=== PATIENT | male | born 1925 | race Caucasian/White ===

== ENCOUNTER 2016-12-05 19:28 | Inpatient (IN) | payer OTHER ==
[~2016-12-05] VITALS: Ht 180.3 cm; Wt 75.8 kg
[~2016-12-05 19:28] MED LIST: AMIO200T2 PO; DOCU-144 PO; FAMO20TA98 PO; FURO-150 PO; HYDR-1189 PO; KLOR CON; LEVO25TA58 PO; METO-304 PO; MULT-976 PO; SIMV20TA6 PO; WARF3TAB PO
[2016-12-05 19:30] VITALS: BP 124/56; PULSE 69; RESP 19; TEMP 97.6; O2SAT 100
[2016-12-05] MEDS ORDERED: NACL 0.9% 1,000 ML IV ONE (19:52)
[2016-12-05 20:04] LABS: ANION GAP 10 (5-15); CALCIUM 8.6 mg/dL (8.4-11.0); CHLORIDE 102 mmol/L (98-107); CREATININE 2.21 mg/dL (0.55-1.30); GLUCOSE 134 mg/dL (70-99); POTASSIUM 4.6 mmol/L (3.5-5.1); SODIUM SERUM 136 mmol/L (136-145); UREA NITROGEN, BLOOD 45 mg/dL (8-21)
[2016-12-05 20:07] LABS: INR 1.1 (0.80-1.20); PROTHROMBIN TIME 12.1 SECS (9.5-12.5)
[2016-12-05 20:08] LABS: ALANINE AMINOTRANSFERASE 23 U/L (12-78); ALBUMIN 2.5 g/dL (3.4-4.8); ASPARTATE AMINOTRANSFERASE 24 U/L (10-37); LIPASE 72 U/L (73-393); TOTAL BILIRUBIN 0.6 mg/dL (0.0-1.0); TOTAL PROTEIN, SERUM 6.5 g/dL (6.4-8.3)
[2016-12-05 20:10] LABS: BASOPHILS # (AUTO) 0.1 K/uL (0.0-0.2); BASOPHILS % (AUTO) 1.7 % (0.0-2.0); EOSINOPHILS # (AUTO) 0.1 K/uL (0.0-0.4); EOSINOPHILS % (AUTO) 0.9 % (0.0-4.0); HEMATOCRIT 33.5 % (36-54); HEMOGLOBIN 11.2 g/dL (14.0-18.0); LYMPHOCYTES # (AUTO) 0.7 K/uL (1.0-5.5); LYMPHOCYTES % (AUTO) 7.9 % (20.5-51.5); MEAN CORPUSCULAR HEMOGLOBIN 26 pg (27-31); MEAN CORPUSCULAR HGB CONC 34 % (32-36); MEAN CORPUSCULAR VOLUME 79 fL (79.0-98.0); MONOCYTES # (AUTO) 0.5 K/uL (0.0-1.0); MONOCYTES % (AUTO) 6.1 % (1.7-9.3); NEUTROPHILS # (AUTO) 7.1 K/uL (1.8-7.7); NEUTROPHILS % (AUTO) 83.4 % (40.0-70.0); PLATELET COUNT (AUTO) 265 K/uL (130-430); RED BLOOD CELL COUNT(AUTO) 4.26 MIL/uL (4.2-6.2); RED CELL DISTRIBUTION WIDTH 14.8 % (9.0-15.0); WHITE BLOOD COUNT (AUTO) 8.5 K/uL (4.8-10.8)
[2016-12-05] MEDS ORDERED: AMPICILLIN SODIUM/SULBACTAM NA 3 GM in NS 100 ML IV ONE (20:15)
[2016-12-05] MEDS ORDERED: AMPICILLIN SODIUM/SULBACTAM NA 3 GM VIAL ONE (20:22)
[2016-12-05 21:42] VITALS: BP 149/91; PULSE 58; RESP 18; TEMP 97.8
[2016-12-05] MEDS ORDERED: ZOLPIDEM TARTRATE 5 MG TABLET PO PRN (22:00)
[2016-12-05] MEDS ORDERED: ACETAMINOPHEN 650 MG/20.3 ML UDC PO PRN (22:00)
[2016-12-05 22:27] LABS: BILIRUBIN,URINE NEGATIVE (NEGATIVE); BLOOD, URINE NEGATIVE (NEGATIVE); CLARITY/URINE CLEAR (CLEAR); COLOR,URINE YELLOW (YELLOW); GLUCOSE,URINE NEGATIVE (NEGATIVE); KETONES,URINE NEGATIVE (NEGATIVE); LEUKOCYTE ESTERASE ,URINE NEGATIVE (NEGATIVE); NITRITE, URINE NEGATIVE (NEGATIVE); PH,URINE 6.5 (5.0-8.0); PROTEIN URINE NEGATIVE (NEGATIVE); UROBILINOGEN,URINE 0.2 (0.2-1.0)
[2016-12-05] MEDS ORDERED: AMPICILLIN SODIUM/SULBACTAM NA 1.5 GM VIAL ONE (23:00)
[2016-12-05] MEDS: NACL 0.9% 1,000 ML IV SCH (23:04)
[2016-12-05] MEDS: AMPICILLIN SODIUM/SULBACTAM NA 1.5 GM in NS 50 ML IV SCH (23:16)
[2016-12-06] VITALS (7 sets, daily range): BP systolic 124–157; BP diastolic 60–82; PULSE 55–65; RESP 16–19; TEMP 96.2–97.8; O2SAT 91–97
[2016-12-06] MEDS: LEVOTHYROXINE SODIUM 0.025 MG TABLET PO SCH (06:09)
[2016-12-06] MEDS: AMPICILLIN SODIUM/SULBACTAM NA 1.5 GM in NS 50 ML IV SCH (06:09)
[2016-12-06 06:58] LABS: ALANINE AMINOTRANSFERASE 20 U/L (12-78); ALBUMIN 2.2 g/dL (3.4-4.8); ANION GAP 8 (5-15); ASPARTATE AMINOTRANSFERASE 21 U/L (10-37); CALCIUM 8.4 mg/dL (8.4-11.0); CHLORIDE 106 mmol/L (98-107); CREATININE 1.91 mg/dL (0.55-1.30); GLUCOSE 92 mg/dL (70-99); POTASSIUM 4.3 mmol/L (3.5-5.1); SODIUM SERUM 136 mmol/L (136-145); THYROID STIMULATING HORMONE 7.91 uIu/mL (0.34-4.82); TOTAL BILIRUBIN 0.4 mg/dL (0.0-1.0); UREA NITROGEN, BLOOD 40 mg/dL (8-21)
[2016-12-06] MEDS ORDERED: COMMUNICATION ORDER XX ONE (08:15)
[2016-12-06] MEDS: DOCUSATE SODIUM 100 MG CAPSULE PO SCH ×2 (09:00→09:36)
[2016-12-06] MEDS: FAMOTIDINE 20 MG TABLET PO SCH (09:36)
[2016-12-06] MEDS: MULTIVITAMINS TAB 1 TABLET PO SCH (09:36)
[2016-12-06] MEDS ORDERED: ALBUTEROL SULFATE 0.083% 2.5 MG/3 ML VIAL.NEB INH PRN (12:15)
[2016-12-06] MEDS ORDERED: AMPICILLIN SODIUM/SULBACTAM NA 1.5 GM in NS 50 ML IV ONE (12:30)
[2016-12-06] MEDS: NACL 0.9% 1,000 ML IV SCH (14:38)
[2016-12-06] MEDS: WARFARIN SODIUM 3 MG TABLET PO SCH (17:13)
[2016-12-06] MEDS: SIMVASTATIN 20 MG TABLET PO SCH (21:34)
[2016-12-06] MEDS ORDERED: BALSAM PERU/CASTOR OIL 60 GM OINT...G. TP PRN (21:45)
[2016-12-06] MEDS: CEFAZOLIN 1 GM IVPB PREMIX 50 ML IV SCH (22:50)
[2016-12-07] VITALS (7 sets, daily range): BP systolic 128–149; BP diastolic 62–74; PULSE 53–64; RESP 16–18; TEMP 96.6–97.9; O2SAT 92–95; Ht 180.3 cm; Wt 75.8 kg
[2016-12-07] MEDS: NACL 0.9% 1,000 ML IV SCH (04:00)
[2016-12-07] MEDS: CEFAZOLIN 1 GM IVPB PREMIX 50 ML IV SCH ×3 (05:24→22:45)
[2016-12-07] MEDS: LEVOTHYROXINE SODIUM 0.025 MG TABLET PO SCH (06:12)
[2016-12-07 06:52] LABS: BASOPHILS % (AUTO) 0.3 % (0.0-2.0); EOSINOPHILS # (AUTO) 0.3 K/uL (0.0-0.4); LYMPHOCYTES # (AUTO) 0.6 K/uL (1.0-5.5)
[2016-12-07 07:03] LABS: MEAN CORPUSCULAR HEMOGLOBIN 27 pg (27-31); MEAN CORPUSCULAR VOLUME 80 fL (79.0-98.0)
[2016-12-07 07:09] LABS: HEMATOCRIT 33.1 % (36-54); HEMOGLOBIN 11.3 g/dL (14.0-18.0); MEAN CORPUSCULAR HGB CONC 34 % (32-36); PLATELET COUNT (AUTO) 236 K/uL (130-430); RED BLOOD CELL COUNT(AUTO) 4.14 MIL/uL (4.2-6.2); RED CELL DISTRIBUTION WIDTH 14.7 % (9.0-15.0); WHITE BLOOD COUNT (AUTO) 6.8 K/uL (4.8-10.8)
[2016-12-07 07:10] LABS: EOSINOPHILS % (AUTO) 3.7 % (0.0-4.0); LYMPHOCYTES % (AUTO) 8.5 % (20.5-51.5); MONOCYTES # (AUTO) 0.6 K/uL (0.0-1.0); MONOCYTES % (AUTO) 8.2 % (1.7-9.3); NEUTROPHILS # (AUTO) 5.3 K/uL (1.8-7.7); NEUTROPHILS % (AUTO) 79.3 % (40.0-70.0)
[2016-12-07 07:18] LABS: INR 1.1 (0.80-1.20); PROTHROMBIN TIME 11.7 SECS (9.5-12.5)
[2016-12-07 07:46] LABS: ANION GAP 9 (5-15); CHLORIDE 102 mmol/L (98-107); GLUCOSE 88 mg/dL (70-99); POTASSIUM 4.7 mmol/L (3.5-5.1); SODIUM SERUM 134 mmol/L (136-145)
[2016-12-07 07:47] LABS: CALCIUM 8.3 mg/dL (8.4-11.0); CREATININE 1.65 mg/dL (0.55-1.30); TOTAL BILIRUBIN 0.3 mg/dL (0.0-1.0); UREA NITROGEN, BLOOD 38 mg/dL (8-21)
[2016-12-07 07:48] LABS: ALANINE AMINOTRANSFERASE 19 U/L (12-78); ALBUMIN 2.2 g/dL (3.4-4.8); ASPARTATE AMINOTRANSFERASE 24 U/L (10-37); CHOLESTEROL 173 mg/dL (<200); TRIGLYCERIDES 53 mg/dL (30-150)
[2016-12-07 07:49] LABS: HDL CHOLESTEROL 69 mg/dL (>45); LDL CHOLESTEROL 83 mg/dL (<100); THYROID STIMULATING HORMONE 9.75 uIu/mL (0.34-4.82)
[2016-12-07] MEDS: FAMOTIDINE 20 MG TABLET PO SCH (08:55)
[2016-12-07] MEDS: DOCUSATE SODIUM 100 MG CAPSULE PO SCH (08:55)
[2016-12-07] MEDS: MULTIVITAMINS TAB 1 TABLET PO SCH (08:55)
[2016-12-07] MEDS ORDERED: BALSAM PERU/CASTOR OIL 60 GM OINT...G. TP SCH (09:00)
[2016-12-07] MEDS: WARFARIN SODIUM 3 MG TABLET PO SCH (17:50)
[2016-12-07] MEDS: SIMVASTATIN 20 MG TABLET PO SCH (20:17)
[2016-12-08] VITALS: BP 149/76; PULSE 55; RESP 16; TEMP 98.7; O2SAT 96
[2016-12-08 04:00] VITALS: BP 161/76; PULSE 57; RESP 16; TEMP 98.4; O2SAT 92
[2016-12-08] MEDS: CEFAZOLIN 1 GM IVPB PREMIX 50 ML IV SCH ×2 (05:08→13:48)
[2016-12-08] MEDS: LEVOTHYROXINE SODIUM 0.025 MG TABLET PO SCH (06:20)
[2016-12-08 07:22] LABS: ANION GAP 5 (5-15); CALCIUM 8.3 mg/dL (8.4-11.0); CHLORIDE 105 mmol/L (98-107); CREATININE 1.44 mg/dL (0.55-1.30); GLUCOSE 90 mg/dL (70-99); POTASSIUM 5.2 mmol/L (3.5-5.1); SODIUM SERUM 133 mmol/L (136-145); UREA NITROGEN, BLOOD 34 mg/dL (8-21)
[2016-12-08 08:19] VITALS: BP 117/69; PULSE 63; RESP 18; TEMP 97.6; O2SAT 92
[2016-12-08 08:52] LABS: INR 1.1 (0.80-1.20); PROTHROMBIN TIME 11.5 SECS (9.5-12.5)
[2016-12-08] MEDS: MULTIVITAMINS TAB 1 TABLET PO SCH (09:00)
[2016-12-08] MEDS: DOCUSATE SODIUM 100 MG CAPSULE PO SCH (09:00)
[2016-12-08] MEDS: FAMOTIDINE 20 MG TABLET PO SCH (09:01)
[2016-12-08] MEDS ORDERED: ACETAMINOPHEN 325 MG TABLET PO PRN (12:45)
[2016-12-08 12:57] VITALS: BP 134/49; PULSE 68; RESP 18; TEMP 97.6; O2SAT 94
[2016-12-08 16:00] VITALS: BP 130/48; PULSE 72; RESP 18; TEMP 98; O2SAT 96
[2016-12-08 16:08] VITALS: BP 134/49; PULSE 68; RESP 18; TEMP 97.6; O2SAT 94
[2016-12-08] MEDS ORDERED: WARFARIN SODIUM 4 MG TABLET PO SCH (18:00)
== END 2016-12-08 21:08 | DRG 682 ==
LOC: SED 19:28 → SMU 21:23 → STU 12-06 08:34
PROVIDERS: ADMIT Internal Medicine; ATTEND Internal Medicine
DX: N17.9 Acute kidney failure, unspecified (principal); E43 Unspecified severe protein-calorie malnutrition; L03.115 Cellulitis of right lower limb; E46 Unspecified protein-calorie malnutrition; I13.0 Hypertensive heart and chronic kidney disease with heart failure and stage 1 through stage 4 chronic kidney disease, or unspecified chronic kidney disease; L97.929 Non-pressure chronic ulcer of unspecified part of left lower leg with unspecified severity; L97.919 Non-pressure chronic ulcer of unspecified part of right lower leg with unspecified severity; L03.116 Cellulitis of left lower limb; N18.9 Chronic kidney disease, unspecified; E03.9 Hypothyroidism, unspecified; J44.9 Chronic obstructive pulmonary disease, unspecified; E78.5 Hyperlipidemia, unspecified; F03.90 Unspecified dementia, unspecified severity, without behavioral disturbance, psychotic disturbance, mood disturbance, and anxiety; N40.0 Benign prostatic hyperplasia without lower urinary tract symptoms; G60.9 Hereditary and idiopathic neuropathy, unspecified; M19.90 Unspecified osteoarthritis, unspecified site; I50.9 Heart failure, unspecified; E86.0 Dehydration; I48.0 Paroxysmal atrial fibrillation; Z79.01 Long term (current) use of anticoagulants; Z85.46 Personal history of malignant neoplasm of prostate; Z95.2 Presence of prosthetic heart valve; Z90.49 Acquired absence of other specified parts of digestive tract; Z86.73 Personal history of transient ischemic attack (TIA), and cerebral infarction without residual deficits; Z79.899 Other long term (current) drug therapy; Z68.23 Body mass index [BMI] 23.0-23.9, adult
CPT/HCPCS: 36415; 71010; 76770; 80048; 80053; 80061; 81003; 83605; 83690-TC; 83880; 84443-TC; 84484; 85025; 85610-TC; 85651-TC; 85730-TC; 87040-TC; 87070-TC; 87075-TC; 87186-TC; 93005; 93306; 96361; 96365; 97110-GP; 97116-GP; 97530-GP; 99285; J0295; J0690; J7030; J7050

== ENCOUNTER 2016-12-23 14:32 | Inpatient (IN) | payer OTHER ==
[~2016-12-23] VITALS: Ht 180.3 cm; Wt 72.6 kg
--- NOTE | 2016-12-23 14:35 | NUR ---
PT. PLACED IN ROOM 3, REPORT RECEIVED FROM EMERALD SOLER, ASSUMED PT. CARE
[2016-12-23 14:38] VITALS: BP 106/64; PULSE 60; RESP 18; TEMP 100.5; O2SAT 95
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
--- NOTE | 2016-12-23 14:44 | NUR ---
X RAY AT BEDSIDE
[2016-12-23] MEDS ORDERED: ACETAMINOPHEN 500 MG TABLET PO ONE (14:45)
--- NOTE | 2016-12-23 14:50 | NUR ---
DR. WELLS AT BEDSIDE EXAMINING THE PT.
[2016-12-23 15:01] LABS: BASOPHILS # (AUTO) 0.1 K/uL (0.0-0.2); BASOPHILS % (AUTO) 0.8 % (0.0-2.0); EOSINOPHILS % (AUTO) 0.5 % (0.0-4.0); HEMATOCRIT 30.4 % (36-54); HEMOGLOBIN 9.9 g/dL (14.0-18.0); LYMPHOCYTES # (AUTO) 0.6 K/uL (1.0-5.5); MEAN CORPUSCULAR HEMOGLOBIN 26 pg (27-31); MEAN CORPUSCULAR HGB CONC 33 % (32-36); MEAN CORPUSCULAR VOLUME 78 fL (79.0-98.0); MONOCYTES # (AUTO) 0.4 K/uL (0.0-1.0); MONOCYTES % (AUTO) 5.8 % (1.7-9.3); NEUTROPHILS # (AUTO) 5.4 K/uL (1.8-7.7); NEUTROPHILS % (AUTO) 82.9 % (40.0-70.0); PLATELET COUNT (AUTO) 206 K/uL (130-430); RED BLOOD CELL COUNT(AUTO) 3.89 MIL/uL (4.2-6.2); RED CELL DISTRIBUTION WIDTH 14.9 % (9.0-15.0); WHITE BLOOD COUNT (AUTO) 6.5 K/uL (4.8-10.8)
[2016-12-23 15:13] LABS: INR 2.2 (0.80-1.20); PROTHROMBIN TIME 24.3 SECS (9.5-12.5)
[2016-12-23 15:21] LABS: ANION GAP 11 (5-15); CALCIUM 8.1 mg/dL (8.4-11.0); CHLORIDE 104 mmol/L (98-107); GLUCOSE 153 mg/dL (70-99); SODIUM SERUM 135 mmol/L (136-145); UREA NITROGEN, BLOOD 49 mg/dL (8-21)
[2016-12-23 15:25] LABS: ALANINE AMINOTRANSFERASE 21 U/L (12-78); ALBUMIN 2.6 g/dL (3.4-4.8); ASPARTATE AMINOTRANSFERASE 26 U/L (10-37); CREATINE KINASE, TOTAL 115 U/L (39-308); TOTAL BILIRUBIN 0.4 mg/dL (0.0-1.0); TOTAL PROTEIN, SERUM 5.6 g/dL (6.4-8.3)
[2016-12-23] MEDS ORDERED: NACL 0.9% 1,000 ML IV ONE (16:00)
[2016-12-23] MEDS ORDERED: cefTRIAXone 1 GM IVPB PREMIX 50 ML IV ONE (16:00)
--- NOTE | 2016-12-23 16:00 | NUR ---
PT. OUT FOR RADIOLOGY VIA PEDRO
--- NOTE | 2016-12-23 16:10 | NUR ---
PT. BACK FROM RADIOLOGY VIA PEDRO
--- NOTE | 2016-12-23 16:30 | NUR ---
PT. TRIED TO URINATE TWICE UNABLE TO PROVIDE URINE, REFUSES DIAZ
[2016-12-23] MEDS ORDERED: BACITRACIN 1 GM OINT TP ONE ×2 (16:45→17:15)
--- NOTE | 2016-12-23 16:45 | NUR ---
Patient will be admitted to care of DR. TOVAR. Admitted to TELE Unit. Will go to room 105 B Summary report printed. Report given to JAYLEEN SOLER.
--- NOTE | 2016-12-23 17:04 | NUR ---
ADMISSION NOTE Received patient from ER via gurney. Patient admitted with diagnosis of Syncope. Patient is awake, alert, oriented X 3. Patient oriented to hospital room, call light, toileting, pain management and safety-teach back done. Patient informed that Lyudmila will be his nurse and that their room number is 105 B. Personal belongings checked and Belongings List documented. Call light within reach.
[2016-12-23 17:09] VITALS: BP 141/63; PULSE 59; RESP 18; TEMP 99; O2SAT 95
--- NOTE | 2016-12-23 17:15 | NUR ---
assessment notes: report given by gabriela charge nurse. received patient in the room.an in the room admitting the patient. at bedside. awake,alert and oriented x3. iv saline lock at left forearm ,with some blood on the opsite area.with bilateral dressing on both lower extremities. bilateral arms with dressing due to fall from home.redness at the back noted. on telemetry,sinus saúl. call light with in reach. continue to monitor.
--- NOTE | 2016-12-23 18:30 | NUR ---
needs attended with son at bedside, pt. was just admitted from ER. pt. awake, alert. assisted to go back to bed.pt. concerned about his skin, lots of bruises noted on upper and lower extremities and also on left upper back, pt. settled in bed, call light within reach, bed in low position. informed pictures will be taken by incoming nurse.
--- NOTE | 2016-12-23 18:45 | NUR ---
Dr. Kaminski here at bedside, seen pt. skin and wants to cleanse with saline and dressing to apply. IV site on left arm checked, flushed and new transparent dressing applied and IVF of D5 1/2 NS @ 75 cc/hr started.Lyudmila informed. will endorse to incoming shift by RYDER Coreas.
[2016-12-23] MEDS ORDERED: FAMOTIDINE 20 MG TABLET PO ONE (19:00)
[2016-12-23] MEDS: D5/0.45 NS 1,000 ML IV SCH (19:04)
[2016-12-23] MEDS ORDERED: WARFARIN SODIUM 3 MG TABLET PO ONE (19:15)
[2016-12-23 20:09] VITALS: BP 132/75; PULSE 64; RESP 18; TEMP 97.6; O2SAT 96
--- NOTE | 2016-12-23 20:15 | NUR ---
assist patient out of bed to BSC large BM noted kept clean and dry as needed / .
[2016-12-23] MEDS: DOCUSATE SODIUM 100 MG CAPSULE PO SCH (21:08)
--- NOTE | 2016-12-23 22:25 | NUR ---
Patient has MULTIPLE WOUND scattered to lower & upper body areas / .
--- NOTE | 2016-12-23 23:35 | NUR ---
COUMADIN 3 MG PO given as ordered / .
--- NOTE | 2016-12-24 | NUR ---
Photos Pictures Taken of WOUNDS to lower & upper extremities , patient did have a Fall @ home , with injuries / .
--- NOTE | 2016-12-24 01:00 | NUR ---
DR TOVAR here to see patient MD @ the bedside / .
[2016-12-24 01:04] VITALS: BP 148/83; PULSE 50; RESP 18; TEMP 97.6; O2SAT 93
--- NOTE | 2016-12-24 03:08 | NUR ---
Hourly Rounding fall measures implemented for fall Risk Hx of falls / .
[2016-12-24 04:00] VITALS: BP 119/74; PULSE 48; RESP 18; TEMP 97.8; O2SAT 93
--- NOTE | 2016-12-24 05:54 | NUR ---
Fall Measures , patient fall Risk had fall @ home instructed for use of call system & re turn demo wnl / .
[2016-12-24] MEDS: LEVOTHYROXINE SODIUM 0.025 MG TABLET PO SCH (06:21)
[2016-12-24] MEDS: D5/0.45 NS 1,000 ML IV SCH (06:22)
[2016-12-24 06:47] LABS: BASOPHILS % (AUTO) 0.6 % (0.0-2.0); EOSINOPHILS # (AUTO) 0.4 K/uL (0.0-0.4); EOSINOPHILS % (AUTO) 5.7 % (0.0-4.0); HEMATOCRIT 31.7 % (36-54); HEMOGLOBIN 10.3 g/dL (14.0-18.0); LYMPHOCYTES # (AUTO) 0.6 K/uL (1.0-5.5); LYMPHOCYTES % (AUTO) 9.7 % (20.5-51.5); MEAN CORPUSCULAR HEMOGLOBIN 26 pg (27-31); MEAN CORPUSCULAR HGB CONC 32 % (32-36); MEAN CORPUSCULAR VOLUME 79 fL (79.0-98.0); MONOCYTES # (AUTO) 0.5 K/uL (0.0-1.0); MONOCYTES % (AUTO) 7.9 % (1.7-9.3); NEUTROPHILS # (AUTO) 4.9 K/uL (1.8-7.7); NEUTROPHILS % (AUTO) 76.1 % (40.0-70.0); PLATELET COUNT (AUTO) 189 K/uL (130-430); RED BLOOD CELL COUNT(AUTO) 4.01 MIL/uL (4.2-6.2); RED CELL DISTRIBUTION WIDTH 15.4 % (9.0-15.0); WHITE BLOOD COUNT (AUTO) 6.4 K/uL (4.8-10.8)
[2016-12-24] MEDS ORDERED: WARFARIN SODIUM 3 MG TABLET PO SCH (07:00)
[2016-12-24 07:02] LABS: ANION GAP 6 (5-15); CALCIUM 8.4 mg/dL (8.4-11.0); CHLORIDE 104 mmol/L (98-107); CREATININE 1.65 mg/dL (0.55-1.30); GLUCOSE 114 mg/dL (70-99); POTASSIUM 4.3 mmol/L (3.5-5.1); SODIUM SERUM 135 mmol/L (136-145); UREA NITROGEN, BLOOD 38 mg/dL (8-21)
[2016-12-24 07:06] LABS: INR 2.1 (0.80-1.20); PROTHROMBIN TIME 23.8 SECS (9.5-12.5)
[2016-12-24] MEDS: DOCUSATE SODIUM 100 MG CAPSULE PO SCH ×2 (09:00→21:00)
[2016-12-24] MEDS: METOPROLOL SUCCINATE 25 MG TAB.SR.24H (TOPROL XL) PO SCH (10:36)
[2016-12-24] MEDS: FAMOTIDINE 20 MG TABLET PO SCH (10:37)
[2016-12-24] MEDS: MULTIVITAMINS TAB 1 TABLET PO SCH (10:37)
[2016-12-24 10:49] VITALS: BP 142/79; PULSE 50; RESP 15; TEMP 97.1; O2SAT 97
[2016-12-24 15:30] VITALS: BP 179/67; PULSE 54; RESP 18; TEMP 98.1; O2SAT 91
[2016-12-24] MEDS: WARFARIN SODIUM 3 MG TABLET PO SCH (18:08)
[2016-12-24 19:30] VITALS: BP 155/78; PULSE 52; RESP 16; TEMP 96.8; O2SAT 98
--- NOTE | 2016-12-24 19:30 | NUR ---
notes received the pt from the day nurse.pt a/a/ox4 no c/o pain or discomfort.o2 via nc in place at 2l/min.dressings to all extremities are dry and intact.iv to lt forearm intact ,no redness or swelling noted.monitor in place and shows SR call light within reach,safety measures in progress.continue to monitor.
--- NOTE | 2016-12-24 21:30 | NUR ---
notes pt resting quietly with no complaints,call light within reach.continue to monitor.
--- NOTE | 2016-12-24 23:35 | NUR ---
notes pt sleeping ,no respiratory difficulty noted.call light within reach.continue to monitor
[2016-12-25] VITALS (7 sets, daily range): BP systolic 146–180; BP diastolic 73–93; PULSE 50–73; RESP 17–19; TEMP 96.6–97.6; O2SAT 91–95
--- NOTE | 2016-12-25 01:24 | NUR ---
notes pt sleeping,no distress noted .continue to monitor.
--- NOTE | 2016-12-25 03:14 | NUR ---
notes pt assisted up to the commode,pt voided and assisted back to bed..bed alarm is on .pt educated to call if he needs anything.continue to monitor.
--- NOTE | 2016-12-25 04:20 | NUR ---
notes pt awake alert assisted up to the commode ,voided and assisted back to bed with call light within reach and the bed alarm turned on.continue to monitor
--- NOTE | 2016-12-25 05:20 | NUR ---
notes pt sleeping,no distress noted,call light within reach.continue to monitor.
[2016-12-25] MEDS: LEVOTHYROXINE SODIUM 0.025 MG TABLET PO SCH (06:16)
--- NOTE | 2016-12-25 06:20 | NUR ---
closing notes. pt awake ,alert keeps asking to be disconnected from the iv pt educated on why we can not take the iv out at this time .will endorse the care of the pt to the day nurse.
[2016-12-25] MEDS: D5/0.45 NS 1,000 ML IV SCH ×3 (06:36→20:12)
[2016-12-25 07:24] LABS: ANION GAP 9 (5-15); CHLORIDE 101 mmol/L (98-107); CREATININE 1.32 mg/dL (0.55-1.30); GLUCOSE 99 mg/dL (70-99); POTASSIUM 4.3 mmol/L (3.5-5.1); SODIUM SERUM 133 mmol/L (136-145); UREA NITROGEN, BLOOD 30 mg/dL (8-21)
[2016-12-25 07:29] LABS: INR 2.6 (0.80-1.20); PROTHROMBIN TIME 29.4 SECS (9.5-12.5)
[2016-12-25 07:31] LABS: BASOPHILS % (AUTO) 0.4 % (0.0-2.0); EOSINOPHILS # (AUTO) 0.5 K/uL (0.0-0.4); EOSINOPHILS % (AUTO) 7.5 % (0.0-4.0); HEMATOCRIT 33.1 % (36-54); HEMOGLOBIN 10.8 g/dL (14.0-18.0); LYMPHOCYTES # (AUTO) 0.6 K/uL (1.0-5.5); LYMPHOCYTES % (AUTO) 9.2 % (20.5-51.5); MEAN CORPUSCULAR HEMOGLOBIN 25 pg (27-31); MEAN CORPUSCULAR HGB CONC 33 % (32-36); MEAN CORPUSCULAR VOLUME 78 fL (79.0-98.0); MONOCYTES # (AUTO) 0.6 K/uL (0.0-1.0); MONOCYTES % (AUTO) 8.4 % (1.7-9.3); NEUTROPHILS # (AUTO) 4.9 K/uL (1.8-7.7); NEUTROPHILS % (AUTO) 74.5 % (40.0-70.0); PLATELET COUNT (AUTO) 188 K/uL (130-430); RED BLOOD CELL COUNT(AUTO) 4.26 MIL/uL (4.2-6.2); RED CELL DISTRIBUTION WIDTH 15.5 % (9.0-15.0); WHITE BLOOD COUNT (AUTO) 6.6 K/uL (4.8-10.8)
--- NOTE | 2016-12-25 08:00 | NUR ---
PT SEEN IN BED, NO C/O PAIN, NO SOB, NO DISTRESS, BP 148/75, HR 54. ASSISTED TO BATHROOM BY GRETTA
[2016-12-25] MEDS: DOCUSATE SODIUM 100 MG CAPSULE PO SCH ×2 (09:08→20:12)
[2016-12-25] MEDS: FAMOTIDINE 20 MG TABLET PO SCH (09:08)
[2016-12-25] MEDS: METOPROLOL SUCCINATE 25 MG TAB.SR.24H (TOPROL XL) PO SCH (09:09)
[2016-12-25] MEDS: MULTIVITAMINS TAB 1 TABLET PO SCH (09:09)
--- NOTE | 2016-12-25 09:35 | NUR ---
Nutrition Update Chuy Scale 17 noted. Pt admitted for syncope. Diet: cardiac BMI: 22.3 kg/m2 RD to follow per nutrition care standards.
--- NOTE | 2016-12-25 10:00 | NUR ---
PT SITTING IN CHAIR IN ROOM, NO C/O PAIN, STATED HE WANTS TO GO HOME. TOLD PT THERE IS NO ORDER YET AND WE WILL WAIT FOR THE PMD. PT SAID OK
--- NOTE | 2016-12-25 12:00 | NUR ---
IN SITTING IN CHAIR, NO C/O PAIN, NO DISTRESS. NO SOB.
--- NOTE | 2016-12-25 16:14 | NUR ---
CONSULT CARDIO BRADYCARDIA DR SALAZAR [phone] S/W SIXTO @[phone]
--- NOTE | 2016-12-25 18:45 | NUR ---
pt in bed, family at bedside, no sob, distress.
[2016-12-25] MEDS: WARFARIN SODIUM 3 MG TABLET PO SCH (18:56)
--- NOTE | 2016-12-25 19:40 | NUR ---
OPENING NOTE Pt. and bedside report received from day shift nurse. Pt. is awake, resting quietly in bed with no s/s of acute distress. Plan of care and safety measures discussed. Pt. verbalized understanding but is forgetful. Sitter present at bedside. Bed alarm on. Will continue to monitor.
[2016-12-25] MEDS: DOXYCYCLINE HYCLATE 100 MG CAPSULE PO SCH (20:12)
--- NOTE | 2016-12-25 21:00 | NUR ---
DUE MEDS Late entry due to pt. care. Due meds administered as ordered. Pt. tolerated well. Educated pt. regarding medications. Denies any questions or concerns at this time. Safety measures in place. Encouraged pt. to use call light for any needs. Bed alarm on. Sitter present in room. Will continue to monitor.
--- NOTE | 2016-12-25 23:24 | NUR ---
ROUNDS Pt. is resting quietly in bed with eyes closed; respirations are even and unlabored with visible chest rise and fall. No s/s of acute distress. Safety measures in place. Call light to right hand. Sitter present in room. Will continue to monitor.
[2016-12-26] VITALS (7 sets, daily range): BP systolic 118–157; BP diastolic 63–101; PULSE 50–65; RESP 16–20; TEMP 96.6–98.1; O2SAT 90–95
--- NOTE | 2016-12-26 | NUR ---
WOUND CARE Wound care done d/t soiling and dislodging. Wounds cleansed with NS; covered with foam dressings. Pt. tolerated well with no c/o pain or discomfort. Will continue to monitor.
--- NOTE | 2016-12-26 01:36 | NUR ---
ROUNDS Pt. is resting quietly in bed with eyes closed; respirations are even and unlabored with visible chest rise and fall. No s/s of acute distress. Safety measures in place. Call light on lap. Sitter present in room. Will continue to monitor.
--- NOTE | 2016-12-26 02:44 | NUR ---
ROUNDS Pt. resting quietly in bed with eyes closed. Respirations are even and unlabored with visible chest rise and fall. No s/s of acute distress. Safety measures in place. Call light to right hand. Bed alarm on. Sitter present in room. Will continue to monitor.
--- NOTE | 2016-12-26 04:07 | NUR ---
ROUNDS Pt. resting quietly in bed. Respirations are even and unlabored with visible chest rise and fall. No s/s of acute distress. Pt. denies any pain or discomfort at this time. Safety measures in place. Call light to right hand. Bed alarm on. Sitter present in room. Will continue to monitor.
--- NOTE | 2016-12-26 04:27 | NUR ---
BEDSIDE COMMODE Assisted pt. to bedside commode with assistance of OD GRINDER OPERATOR at bedside. Pt. tolerated well.
[2016-12-26] MEDS: LEVOTHYROXINE SODIUM 0.025 MG TABLET PO SCH (06:20)
[2016-12-26 06:21] LABS: BASOPHILS % (AUTO) 0.4 % (0.0-2.0); EOSINOPHILS # (AUTO) 0.4 K/uL (0.0-0.4); EOSINOPHILS % (AUTO) 6.8 % (0.0-4.0); HEMATOCRIT 34.6 % (36-54); HEMOGLOBIN 11.1 g/dL (14.0-18.0); LYMPHOCYTES # (AUTO) 0.6 K/uL (1.0-5.5); LYMPHOCYTES % (AUTO) 9.3 % (20.5-51.5); MEAN CORPUSCULAR HEMOGLOBIN 25 pg (27-31); MEAN CORPUSCULAR HGB CONC 32 % (32-36); MEAN CORPUSCULAR VOLUME 79 fL (79.0-98.0); MONOCYTES # (AUTO) 0.5 K/uL (0.0-1.0); MONOCYTES % (AUTO) 9.2 % (1.7-9.3); NEUTROPHILS # (AUTO) 4.4 K/uL (1.8-7.7); NEUTROPHILS % (AUTO) 74.3 % (40.0-70.0); PLATELET COUNT (AUTO) 184 K/uL (130-430); RED BLOOD CELL COUNT(AUTO) 4.36 MIL/uL (4.2-6.2); RED CELL DISTRIBUTION WIDTH 15.2 % (9.0-15.0); WHITE BLOOD COUNT (AUTO) 5.9 K/uL (4.8-10.8)
[2016-12-26 06:29] LABS: ANION GAP 6 (5-15); CALCIUM 8.3 mg/dL (8.4-11.0); CHLORIDE 102 mmol/L (98-107); CREATININE 1.17 mg/dL (0.55-1.30); GLUCOSE 102 mg/dL (70-99); POTASSIUM 4.2 mmol/L (3.5-5.1); SODIUM SERUM 133 mmol/L (136-145); UREA NITROGEN, BLOOD 27 mg/dL (8-21)
[2016-12-26 06:51] LABS: INR 2.6 (0.80-1.20)
--- NOTE | 2016-12-26 06:57 | NUR ---
CLOSING NOTES All needs met throughout shift. Pt. is resting quietly in bed with no s/s of acute distress. Safety measures in place. Bed alarm on. Sitter present at bedside. Will endorse care to oncoming day shift nurse.
[2016-12-26] MEDS: D5/0.45 NS 1,000 ML IV SCH (07:25)
--- NOTE | 2016-12-26 07:55 | NUR ---
Routine Patient resting in bed with Dr. Garcia at bedside. Patient stable.
--- NOTE | 2016-12-26 08:05 | NUR ---
Assessment Patient awake, alert, oriented x4. Lungs clear. Respiration even and unlabored. NSR/SB. 20 gauge peripheral IV in left forearm infusing D5 1/2NS @ 75 ml/hr. Bruises and dressings on bilateral upper and lower extremities. Discoloration on bilateral lower extremities. Denies any pain at this time. Patient stable.
[2016-12-26] MEDS: DOCUSATE SODIUM 100 MG CAPSULE PO SCH ×2 (08:34→21:20)
[2016-12-26] MEDS: MULTIVITAMINS TAB 1 TABLET PO SCH (08:34)
[2016-12-26] MEDS: DOXYCYCLINE HYCLATE 100 MG CAPSULE PO SCH ×2 (08:35→21:20)
[2016-12-26] MEDS: FAMOTIDINE 20 MG TABLET PO SCH (08:35)
--- NOTE | 2016-12-26 08:35 | NUR ---
Routine Patient assisted to chair at bedside to eat breakfast. Scheduled medications given per order. Patient stable at this time.
[2016-12-26] MEDS: METOPROLOL SUCCINATE 25 MG TAB.SR.24H (TOPROL XL) PO SCH (08:36)
--- NOTE | 2016-12-26 10:30 | NUR ---
Routine Patient ambulating with aid of walker and Zain OLIVEIRA.
--- NOTE | 2016-12-26 11:30 | NUR ---
Routine Patient sitting in chair at bedside. No distress noted. Patient denies any pain at this time. Patient stable.
--- NOTE | 2016-12-26 13:03 | NUR ---
Routine Patient sitting in chair at bedside. No distress noted. Patient denies pain at this time. Patient stable.
--- NOTE | 2016-12-26 15:36 | NUR ---
PHYSICAL THERAPY CO-SIGN The Physical Therapy Progress Notes documented by Rodent Control Worker have been reviewed. I CONCUR W/ICER AIR CONDITIONING NOTE; CONT PER TX PLAN Reviewed/Co-Signed by: Rowena Hernandez PT Documentation Done by: KIMBERLY GARCIA ICER AIR CONDITIONING Addendum: 12/26/16 at 1537 by Rowena Hernandez PT Amended: Links added.
--- NOTE | 2016-12-26 15:42 | NUR ---
DC Planning: Rec'd order for dc planning and transfer when bed available--Rose, becky and myself have called 's # earlier today but ph# not working. Called son Jose Ontiveros at [phone] and have left two messages to call us back to discharge choice of vendor list for SNF and IM letter. Per Rose, pt indicated home phone# not working for a while now, and thinks he was at snf before on [address] nearby here[facility]? [facility]erral faxed to [facility]. No family at bedside--ANA RN
--- NOTE | 2016-12-26 16:10 | NUR ---
Wound Evaluation: Late note for 1610 secondary to patient care. Wound Consult received from Dr. Garcia. Thank you, Dr. Franco, for the consult. Patient received in a Neeta Bed with an Atmos-Air 9000 mattress, awake, alert, and oriented. Patient needs to turn in bed, transfer, and ambulate. Chuy Score is a 15. Past Medical History: Mitral Valve Replacement, intermittent Atrial Fibrillation, history of strokes in the past, Prostate Cancer, Chronic Kidney Disease, back surgery, COPD, Idiopathic Peripheral Neuropathy, Appendectomy, and Prostate surgery. Recent Labs: WBC 5.9, RBC 4.36, Hgb 11.1, Hct 34.6, Na 133, BUN 27, Creat 1.17, Gluc 102, Alb 2.6, PT 29.0, INR 2.6. Intrinsic factors that delay wound healing: COPD, Peripheral Neuropathy. Extrinsic factors that delay wound healing: Decreased mobility. Microbiology: Blood Culture results x 2 in progress. MRSA Screen negative. Hemosiderin staining present on bilateral lower extremities. Wound Assessment: 1) Left Distal Anterior Lower Extremity: Venous Insufficiency Ulcer, present on admission. Wound bed is 100% yellow tissue. No odor, no drainage. Basia-wound and surrounding tissue pink. Surrounding tissue also has dry, flaky skin. Measures 2.5 cm x 1.5 cm. 2) Left Distal Anterior Lower Extremity, Superior to Wound 1: Venous Insufficiency Ulcer, present on admission. Wound bed is 100% dark pink tissue. No odor, scant sanguineous drainage. Basia-wound pink. Surrounding tissue has dry, flaky skin. Measures 1.0 cm x 0.3 cm. 3) Left Distal Anterior Lower Extremity, Superior to Wound 2: Venous Insufficiency Ulcer, present on admission. Wound bed is 100% dark pink tissue. No odor, scant sanguineous drainage. Basia-wound pink. Surrounding tissue has dry, flaky skin. Measures 0.8 cm x 0.8 cm. Recommend: Cleanse wounds with normal saline. Place moisture barrier cream onto basia-wounds. Put Venelex ointment onto wound beds. Cover with non-adhesive foam dressings. Wrap with edin wrap. Perform wound care daily, and as needed for dressing soiling or dislodgement. 4) Right Medial Lower Extremity: Venous Insufficiency Ulcer, present on admission. Wound bed is 5% dark red tissue, 95% yellow tissue. No odor, scant sanguineous drainage. Basia-wound pink. Surrounding tissue has dry, flaky skin. Measures 2.9 cm x 3.5 cm x 0.2 cm. 5) Right Medial Lower Extremity, Inferior to Wound 4: Venous Insufficiency Ulcer, present on admission. Wound bed is 5% red tissue, 95% yellow tissue. No odor, scant sanguineous drainage. Basia-wound pink. Surrounding tissue has dry, flaky skin. Measures 1.6 cm x 1.4 cm. 6) Right Medial Lower Extremity, Inferior to Wound 5: Venous Insufficiency Ulcer, present on admission. Wound bed is 5% dark red tissue, 95% yellow tissue. No odor, scant sanguineous drainage. Basia-wound pink. Surrounding tissue has dry, flaky skin. Measures 4.0 cm x 1.7 cm. 7) Right Posterior Medial Calf: Venous Insufficiency Ulcer, present on admission. Wound bed is 70% dark red tissue, 30% yellow tissue. No odor, no drainage. Basia-wound pink. Surrounding tissue has dry, flaky skin. Measures 2.8 cm x 3.5 cm x 0.2 cm. Recommend: Cleanse wounds with normal saline. Place moisture barrier cream onto basia-wounds. Put Venelex ointment onto wound beds. Cover with non-adhesive foam dressings. Wrap with edin wrap. Perform wound care daily, and as needed for dressing soiling or dislodgement. 8) Left Posterior Forearm: Wound, present on admission. Wound bed is 70% black eschar, 30% red tissue. No odor, no drainage. Basia-wound intact. Measures 1.7 cm x 0.7 cm. Multiple areas of bruising present. 9) Right Lateral Upper Extremity, Distal to Elbow: Wound, present on admission. Wound bed is 100% black eschar. No odor, no drainage. Basia-wound intact. Measures 1.7 cm x 0.7 cm. Multiple areas of bruising present. Recommend: Cleanse wounds with normal saline. Place moisture barrier cream onto basia-wounds. Put Venelex ointment onto wound beds. Cover with foam dressings. Perform wound care daily, and as needed for dressing soiling or dislodgement. 10) Left Posterior Shoulder: Chronic wound site with dry, red eschar, and scar tissue. No odor, no drainage. Recommend: No dressings needed. Continue to monitor sites for worsening condition. Also recommend: Encourage and assist patient as needed with repositioning every 2 hours with pillow support and off-load pressure areas with pillows for pressure re-distribution. Offload, elevate and float bilateral heels with pillows. Perform skin care and monitor skin integrity Q shift. Use moisture barrier cream on buttocks and other moisture susceptible areas QID and as needed for soiling. Addendum: 12/26/16 at 2228 by Terry Pittman RN Error, Wound also present on admission: 10) Right Distal Lateral Calf: Venous Insufficiency Ulcer, present on admission. Wound bed is 5% pink tissue, 95% yellow tissue. No odor, no drainage. Basia-wound pink. Surrounding tissue has dry, flaky skin. Measures 9.3 cm x 4.0 cm x 0.3 cm. Recommend: Cleanse wound with normal saline. Place moisture barrier cream onto basia-wound. Put Venelex ointment onto wound bed. Cover with non-adhesive foam dressing. Wrap with edin wrap. Perform wound care daily, and as needed for dressing soiling or dislodgement.
--- NOTE | 2016-12-26 16:10 | NUR ---
Routine Patient resting in bed with son and wound care nurse at bedside. Wounds cleansed with saline; hydrogel and Z-guard applied; covered with dressing. Patient tolerated well.
--- NOTE | 2016-12-26 16:13 | NUR ---
DC PLANNING Earlier today, spoke w Dr Garcia in [facility] station, plan for dc to snf. Spoke w pt @ bedside & informed states agreeable has been to SNF in past but does not remember. Would like to go to same one, that it was on [address]. Asked if it was [facility], states maybe not sure to call & ask him . Attempted to call [facility] ph [phone] but rings busy. Asked pt & states ph has been broken to call son Jose, ph [phone]. Called & left msg sukumar Garcia to return my call. Addendum: 12/26/16 at 1646 by Rose Gillespie RN Pt's son Jose Ontiveros @ bedside. Per Jose pt was @ [facility] in past. Pt stating wants to go to [place] that had a good experience there. Gave list of SNF's. Signed choices letter, [facility] & [facility]. Per son pt's coming in later today to visit, verified that ph not working & does not have cell ph. Jose's cell ph [phone] Addendum: 12/26/16 at 1648 by Anette A Nguyen DP Faxed SNF referral to [phone] requesting to call nurses station with bed assignment. RN to report [phone]. Placed transportation packet in nurses station. Any ambulance can be arranged.
--- NOTE | 2016-12-26 17:00 | NUR ---
Routine Patient sitting in chair with at bedside. Patient denies pain at this time. Patient stable. Addendum: 12/26/16 at 1715 by Janice Mireles RN [facility]
[2016-12-26] MEDS: WARFARIN SODIUM 3 MG TABLET PO SCH (17:27)
--- NOTE | 2016-12-26 17:30 | NUR ---
Routine Scheduled medication given per order. Patient stable with Marcela at bedside.
--- NOTE | 2016-12-26 19:29 | NUR ---
OPENING NOTE Pt. and bedside report received from day shift nurse. Pt. is resting quietly in bed with no s/s of acute distress. Plan of care and safety measures discussed. Pt. verbalized understanding but is forgetful. Sitter present at bedside. Bed alarm on. Will continue to monitor. Pending bed availability at [facility].
--- NOTE | 2016-12-26 21:00 | NUR ---
NEW IV SITE Late entry due to pt. care. IV site to left f/a is infiltrated. New IV site started to right f/a by RYDER Krause. IVF infusing as ordered.
--- NOTE | 2016-12-26 22:00 | NUR ---
DUE MEDS Due meds administered as ordered. pt. tolerated well with no c/o pain or discomfort at this time. Safety measures in place. Call light to right hand. Sitter present at bedside. Bed alarm on. Will continue to monitor.
--- NOTE | 2016-12-26 23:42 | NUR ---
ROUNDS Pt. is resting quietly in bed with no s/s of acute distress. Safety measures in place. Call light to right hand. Sitter present at bedside. Will continue to monitor.
--- NOTE | 2016-12-27 00:54 | NUR ---
ROUNDS Pt. is resting quietly in bed with no s/s of acute distress. Denies any pain or discomfort at this time. Safety measures in place. Call light to right hand. Bed alarm on. Sitter present at bedside. Will continue to monitor.
[2016-12-27] MEDS: D5/0.45 NS 1,000 ML IV SCH ×2 (01:13→05:45)
--- NOTE | 2016-12-27 01:20 | NUR ---
IV FLUIDS IV fluids infusing as ordered. Pt. denies any pain or discomfort at this time. Safety measures in place. Sitter present at bedside. Will continue to monitor.
--- NOTE | 2016-12-27 02:03 | NUR ---
ROUNDS Pt. is resting quietly in bed with no s/s of acute distress. Safety measures in place. Bed alarm on. Sitter present at bedside. Will continue to monitor.
--- NOTE | 2016-12-27 03:15 | NUR ---
ROUNDS Pt. is resting quietly in bed with no s/s of acute distress. Safety measures in place. Call light to right hand. Bed alarm on. Sitter present at bedside. Will continue to monitor.
[2016-12-27 05:31] VITALS: BP 148/84; PULSE 62; RESP 20; TEMP 98; O2SAT 97
[2016-12-27] MEDS: LEVOTHYROXINE SODIUM 0.025 MG TABLET PO SCH (05:57)
--- NOTE | 2016-12-27 06:24 | NUR ---
CLOSING NOTES All needs met throughout shift. No significant changes. Pt. is resting quietly in bed with no s/s of acute distress. Safety measures in place. Bed alarm on. Sitter present at bedside. Will endorse care to oncoming day shift nurse.
--- NOTE | 2016-12-27 06:50 | NUR ---
AM ROUNDS Pt sleeping. Opens eyes. A/O x1 to name only...Pt denies pain at this time...IVF infusing well to RW, Protonix infusing well to RH...FC draining well via gravity...Pt with multiple bruises to BUE due to pulling out IV..IV site wrapped...D/O at bedside...Will cont to monitor Addendum: 12/27/16 at 1055 by Mercedes Huitron LVN WRONG PTDISREGARD ABOVE NOTE
[2016-12-27 07:06] LABS: ANION GAP 5 (5-15); CALCIUM 8.1 mg/dL (8.4-11.0); CHLORIDE 104 mmol/L (98-107); CREATININE 1.12 mg/dL (0.55-1.30); GLUCOSE 96 mg/dL (70-99); POTASSIUM 4.4 mmol/L (3.5-5.1); SODIUM SERUM 133 mmol/L (136-145); UREA NITROGEN, BLOOD 28 mg/dL (8-21)
[2016-12-27 07:30] LABS: BASOPHILS % (AUTO) 0.4 % (0.0-2.0); EOSINOPHILS # (AUTO) 0.3 K/uL (0.0-0.4); EOSINOPHILS % (AUTO) 5.9 % (0.0-4.0); HEMATOCRIT 33.1 % (36-54); HEMOGLOBIN 10.6 g/dL (14.0-18.0); LYMPHOCYTES # (AUTO) 0.6 K/uL (1.0-5.5); LYMPHOCYTES % (AUTO) 11.5 % (20.5-51.5); MEAN CORPUSCULAR HEMOGLOBIN 25 pg (27-31); MEAN CORPUSCULAR HGB CONC 32 % (32-36); MEAN CORPUSCULAR VOLUME 80 fL (79.0-98.0); MONOCYTES # (AUTO) 0.6 K/uL (0.0-1.0); MONOCYTES % (AUTO) 11.4 % (1.7-9.3); NEUTROPHILS # (AUTO) 3.7 K/uL (1.8-7.7); NEUTROPHILS % (AUTO) 70.8 % (40.0-70.0); PLATELET COUNT (AUTO) 175 K/uL (130-430); RED BLOOD CELL COUNT(AUTO) 4.16 MIL/uL (4.2-6.2); RED CELL DISTRIBUTION WIDTH 15.3 % (9.0-15.0); WHITE BLOOD COUNT (AUTO) 5.2 K/uL (4.8-10.8)
[2016-12-27 07:37] LABS: INR 2.8 (0.80-1.20)
[2016-12-27 07:51] LABS: PROTHROMBIN TIME 31.4 SECS (9.5-12.5)
[2016-12-27] MEDS ORDERED: BALSAM PERU/CASTOR OIL 60 GM OINT...G. TP SCH (09:00)
--- NOTE | 2016-12-27 10:00 | NUR ---
PT OOB IN CHAIR, NEXT TO BED
[2016-12-27] MEDS: METOPROLOL SUCCINATE 25 MG TAB.SR.24H (TOPROL XL) PO SCH (10:16)
[2016-12-27] MEDS: MULTIVITAMINS TAB 1 TABLET PO SCH (10:16)
[2016-12-27] MEDS: DOXYCYCLINE HYCLATE 100 MG CAPSULE PO SCH (10:16)
[2016-12-27] MEDS: FAMOTIDINE 20 MG TABLET PO SCH (10:16)
[2016-12-27] MEDS: DOCUSATE SODIUM 100 MG CAPSULE PO SCH (10:16)
--- NOTE | 2016-12-27 10:25 | NUR ---
DISCHARGE PLANNING Called and spoke with [facility] who did not review faxed referral. Re-faxed as requested Fx . Nancy made aware plan to discharge patient to SNF today. Will follow up. Addendum: 12/27/16 at 1041 by Anette Nguyen DP Called [facility] [phone] spoke with [facility] transport on will call. Transportation packet in nurses station. Addendum: 12/27/16 at 1301 by Anette Nguyen DP [facility] [place] came to evaluate patient. Patient accepted assigned to room 326A RN to report , bed available anytime. Pending RN to call back for ambulance to be arranged. Addendum: 12/27/16 at 1426 by Anette COLMENARES RYDER Long made aware. Called [facility] [phone] spoke with Lupis fagan transport flower buncher or picker 3:30pm. Called patient son Jose Ontiveros cell ph [phone] who is agreeable with patient discharge and transfer to SNF today. Jose requested [facility] to attempt to call and notify patient [facility]. Verified number to call with Jose. Called [phone] x3 phone line eric. Addendum: 12/27/16 at 1458 by Anette Nguyen DP Per RYDER Long requested, Called [facility] ambulance [phone] spoke with Yoav changed flower buncher or picker time to 4:30pm
[2016-12-27 12:59] VITALS: BP 126/79; PULSE 70; RESP 17; TEMP 96.4; O2SAT 98
--- NOTE | 2016-12-27 13:00 | NUR ---
PT STABLE...OOB IN CHAIR...WILL CONT TO MONITOR
--- NOTE | 2016-12-27 14:00 | NUR ---
PHYSICAL THERAPY CO-SIGN The Physical Therapy Progress Notes documented by Statement Distribution Clerk have been reviewed. Reviewed/Co-Signed by: Brooklyn Fisher,PT Documentation Done by: Zain Esquivel PTA I concur with the documentation of this SENIOR INVESTMENT MANAGER. Plan: continue PT as per plan of care. Addendum: 12/27/16 at 1535 by Brooklyn Fisher PT Amended: Links added.
--- NOTE | 2016-12-27 15:05 | NUR ---
ASSISTED PT WITH URINAL
[2016-12-27 15:09] VITALS: Ht 180.3 cm; Wt 72.6 kg
--- NOTE | 2016-12-27 16:15 | NUR ---
WOUND CARE DONE/PICTURES TAKEN WOUNDS TO BOTH UPPER AND LOWER BILATERAL EXTREMITIES CLEANSED, DRESSED AND PICTURES TAKEN
--- NOTE | 2016-12-27 16:21 | NUR ---
PT TRANSFERRED Report given to RYDER HERNANDEZ at 326A. Transfer packet with Transfer Orders and Medication Reconciliation form given to EMT with report. Exitcare provided. [facility] ID band removed, replaced with ID band with pt's name and . IV catheter removed, intact and dressing applied, no active bleeding. All belongings sent with patient. Patient left floor via gurney escorted by EMT in no distress. PT STABLE UPON DC
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
[2016-12-27 16:50] VITALS: BP 193/84; PULSE 58; RESP 16; TEMP 96; O2SAT 93
== END 2016-12-27 16:30 | DRG 308 ==
LOC: SED 14:32 → SMU 16:25 → STU 16:45
PROVIDERS: ADMIT Family Medicine; ATTEND Family Medicine
DX: I49.9 Cardiac arrhythmia, unspecified (principal); N17.0 Acute kidney failure with tubular necrosis; N18.4 Chronic kidney disease, stage 4 (severe); L03.113 Cellulitis of right upper limb; E44.0 Moderate protein-calorie malnutrition; M19.90 Unspecified osteoarthritis, unspecified site; D64.9 Anemia, unspecified; E03.9 Hypothyroidism, unspecified; E86.0 Dehydration; S81.819A Laceration without foreign body, unspecified lower leg, initial encounter; S41.119A Laceration without foreign body of unspecified upper arm, initial encounter; I48.0 Paroxysmal atrial fibrillation; I12.9 Hypertensive chronic kidney disease with stage 1 through stage 4 chronic kidney disease, or unspecified chronic kidney disease; R27.0 Ataxia, unspecified; I87.8 Other specified disorders of veins; W18.39XA Other fall on same level, initial encounter; Y92.098 Other place in other non-institutional residence as the place of occurrence of the external cause; Y99.8 Other external cause status; Z95.2 Presence of prosthetic heart valve; Z86.73 Personal history of transient ischemic attack (TIA), and cerebral infarction without residual deficits; Z79.01 Long term (current) use of anticoagulants; Z79.899 Other long term (current) drug therapy
CPT/HCPCS: 36415; 70450-TC; 71010; 72170-TC; 80048; 80053; 82550-TC; 83605; 83735-TC; 85025; 85610-TC; 87040-TC; 87081; 93005; 96365; 97110-GP; 97116-GP; 97530-GP; 99285; J0696; J7030